=== PATIENT | male | born 1940 | race American Indian/Alaskan Native ===

== ENCOUNTER 2017-08-22 02:47 | Emergency (ER) | payer MEDICARE, MEDICAID ==
[~2017-08-22] VITALS: Ht 167.6 cm; Wt 70.0 kg
[2017-08-22 04:41] LABS: BASOPHILS % 0.4 % (0.0-2.0); EOSINOPHILS % 1.3 % (0.0-5.0); HEMATOCRIT. 40.7 % (42.0-52.0); HEMOGLOBIN. 14.1 g/dL (14.0-18.0); LYMPHOCYTES % 13.8 % (20.0-50.0); MEAN CORPUSCULAR HEMOGLOBIN 28.5 pg (28.0-32.0); MEAN CORPUSCULAR VOLUME 81.9 fL (80.0-94.0); MEAN PLATELET VOLUME 11.3 fl (7.4-10.4); MONOCYTES % 8.1 % (2.0-8.0); NEUTROPHILS % 76.4 % (40.0-76.0); PLATELET 118 x1000/uL (130-400); RED BLOOD CELL COUNT 4.97 mill/uL (4.7-6.1); RED CELL DISTRIBUTION WIDTH 14.1 % (11.6-14.6)
[2017-08-22 04:48] LABS: CARBON DIOXIDE 29 mEq/L (21-32); TROPONIN I < 0.02 ng/mL (0.00-0.04)
[2017-08-22 05:00] LABS: CHLORIDE 105 mEq/L (98-107)
[2017-08-22] MEDS ORDERED: CLONIDINE 0.2MG TABLET PO SCH (05:15)
[2017-08-22 06:10] VITALS: BP 150/103
== END 2017-08-22 06:03 | disposition home or self-care (01) ==
LOC: ER 02:56
DX: R42 Dizziness and giddiness (principal); T50.995A Adverse effect of other drugs, medicaments and biological substances, initial encounter; Y92.098 Other place in other non-institutional residence as the place of occurrence of the external cause; I10 Essential (primary) hypertension; I44.0 Atrioventricular block, first degree
CPT/HCPCS: 36415; 71010; 80053; 84484; 85025; 93005; 99285

== ENCOUNTER 2017-10-06 03:04 | Emergency (ER) | payer MEDICARE, MEDICAID ==
[~2017-10-06] VITALS: Ht 167.6 cm; Wt 75.0 kg
[2017-10-06] MEDS ORDERED: ONDANSETRON HCL 4MG/2ML VIAL IV STA (03:24)
[2017-10-06] MEDS ORDERED: MECLIZINE 25MG TABLET PO ONE (03:30)
[2017-10-06 03:50] LABS: BASOPHILS % 0.6 % (0.0-2.0); EOSINOPHILS % 2.8 % (0.0-5.0); HEMATOCRIT. 45.3 % (42.0-52.0); HEMOGLOBIN. 15.4 g/dL (14.0-18.0); LYMPHOCYTES % 29.2 % (20.0-50.0); MEAN CORPUSCULAR HEMOGLOBIN 27.7 pg (28.0-32.0); MEAN CORPUSCULAR VOLUME 81.4 fL (80.0-94.0); MEAN PLATELET VOLUME 11.4 fl (7.4-10.4); MONOCYTES % 8.6 % (2.0-8.0); NEUTROPHILS % 58.8 % (40.0-76.0); PLATELET 141 x1000/uL (130-400); RED BLOOD CELL COUNT 5.57 mill/uL (4.7-6.1); RED CELL DISTRIBUTION WIDTH 14.4 % (11.6-14.6)
[2017-10-06 03:57] LABS: CARBON DIOXIDE 27 mEq/L (21-32); CHLORIDE 105 mEq/L (98-107)
[2017-10-06 06:34] VITALS: BP 130/85
== END 2017-10-06 06:39 | disposition home or self-care (01) ==
LOC: ER 03:28
DX: R42 Dizziness and giddiness (principal); R11.0 Nausea; R51 Headache; H93.12 Tinnitus, left ear; I10 Essential (primary) hypertension
CPT/HCPCS: 36415; 80048; 85025; 93005; 96374; 99285; J2405; J8597